=== PATIENT | female | born 1980 | race Caucasian/White ===

== ENCOUNTER 2016-10-20 12:59 | Emergency (ER) | payer SELFPAY ==
[~2016-10-20] VITALS: Ht 165.1 cm; Wt 99.8 kg
== END 2016-10-20 13:13 | disposition home or self-care (01) ==
LOC: ED 12:59
DX: Z00.8 Encounter for other general examination (principal)

== ENCOUNTER 2016-11-05 22:18 | Emergency (ER) | payer OTHER ==
[~2016-11-05] VITALS: Ht 167.6 cm; Wt 99.8 kg
== END 2016-11-05 22:48 | disposition home or self-care (01) ==
LOC: ED 22:18
DX: J01.90 Acute sinusitis, unspecified (principal); J45.901 Unspecified asthma with (acute) exacerbation; Z98.51 Tubal ligation status; Z98.890 Other specified postprocedural states; Z88.0 Allergy status to penicillin
CPT/HCPCS: 99282

== ENCOUNTER 2017-04-20 19:28 | Emergency (ER) | payer OTHER ==
[~2017-04-20] VITALS: Ht 167.6 cm; Wt 114.8 kg
[2017-04-20] MEDS ORDERED: LATUDA120 MG PO (20:15)
[2017-04-20] MEDS ORDERED: SERTRALINE HCL100 MG PO (20:15)
[2017-04-20] MEDS ORDERED: SUCRALFATE1 GM PO (20:15)
[2017-04-20] MEDS ORDERED: OMEPRAZOLE20 MG PO (20:15)
[2017-04-20] MEDS ORDERED: SERTRALINE HCL50 MG PO (20:15)
[2017-04-20] MEDS ORDERED: BUPROPION XL150 MG PO (20:16)
[2017-06-25] MEDS ORDERED: ABILIFY2 MG PO (08:05)
== END 2017-04-21 00:05 | disposition home or self-care (01) ==
LOC: ED 19:28
DX: K62.5 Hemorrhage of anus and rectum (principal); E66.9 Obesity, unspecified; J45.909 Unspecified asthma, uncomplicated; F41.9 Anxiety disorder, unspecified; F32.9 Major depressive disorder, single episode, unspecified; F17.200 Nicotine dependence, unspecified, uncomplicated; Z88.0 Allergy status to penicillin; Z79.899 Other long term (current) drug therapy
CPT/HCPCS: 80053; 81001; 83690; 85025; 99284

== ENCOUNTER 2019-02-22 12:32 | Emergency (ER) | payer OTHER ==
[~2019-02-22] VITALS: Ht 172.7 cm; Wt 129.3 kg
[~2019-02-22 12:32] MED LIST: ABILIFY2 MG PO; BUPROPION XL150 MG PO; LATUDA120 MG PO; OMEPRAZOLE20 MG PO; SERTRALINE HCL100 MG PO; SERTRALINE HCL50 MG PO; SUCRALFATE1 GM PO
[2019-02-22] MEDS ORDERED: VITAMIN D21250 MCG PO (13:08)
[2019-02-22] MEDS ORDERED: CLONIDINE HCL0.1 MG PO (13:08)
[2019-02-22] MEDS ORDERED: METFORMIN HCL1000 MG PO (13:08)
[2019-02-22] MEDS ORDERED: PROPRANOLOL HCL10 MG PO (13:09)
[2019-02-22] MEDS ORDERED: NORCO 5-325 TA1 EACH PO (17:02)
[2019-02-22] MEDS ORDERED: ONDANSETRON ODT8 MG PO (17:02)
== END 2019-02-22 17:17 | disposition home or self-care (01) ==
LOC: ED 12:32
DX: N13.2 Hydronephrosis with renal and ureteral calculous obstruction (principal); J45.909 Unspecified asthma, uncomplicated; F32.9 Major depressive disorder, single episode, unspecified; F41.9 Anxiety disorder, unspecified; F17.200 Nicotine dependence, unspecified, uncomplicated; Z88.0 Allergy status to penicillin; Z79.899 Other long term (current) drug therapy; Z79.84 Long term (current) use of oral hypoglycemic drugs
CPT/HCPCS: 74176; 80053; 81001; 83690; 83735; 85025; 96361; 96374; 96375; 99284-25; A9270; J1885; J2405; J7030

== ENCOUNTER 2019-10-04 18:59 | Emergency (ER) | payer OTHER ==
[~2019-10-04] VITALS: Ht 172.7 cm; Wt 129.3 kg
[~2019-10-04 18:59] MED LIST changes: +CLONIDINE HCL0.1 MG PO; +METFORMIN HCL1000 MG PO; +NORCO 5-325 TA1 EACH PO; +ONDANSETRON ODT8 MG PO; +PROPRANOLOL HCL10 MG PO; +VITAMIN D21250 MCG PO
--- OUTSIDE RECORDS SUMMARY | 2019-10-04 19:02 | XMS ---
PreManage Notification: SOTERO LADD Security Vegetable Worker Events No recent Security Events currently on file CRITERIA MET - [facility] - Has Care Guidelines CARE PROVIDERS There are no care providers on record at this time. Guidelines Source: [employer] [place] Guidelines Date: 02/23/2019 Care Coordination: Mental health services provided by [employer].\T\nbsp; Please contact [employer] with mental health concerns.\T\nbsp; [facility]: [phone]\T\ nbsp; [place]: [phone]. E.D. VISIT COUNT (12 MO.) 2 [facility]. TOTAL 2 NOTE: Visits indicate total known visits. ED/UCC VISIT TRACKING (12 MO.) 10/04/2019 19:00 [facility] [place] TYPE: Emergency COMPLAINT: - FLANK PAIN 02/22/2019 12:32 [facility] [place] TYPE: Emergency COMPLAINT: - ABD PAIN, VOMITING, DIAGNOSES: - Allergy status to penicillin - Anxiety disorder, unspecified - extermination supervisor (current) use of oral hypoglycemic drugs - Major depressive disorder, single episode, unspecified - Unspecified asthma, uncomplicated - Left lower quadrant pain - Other extermination supervisor (current) drug therapy - Nicotine dependence, unspecified, uncomplicated - Nausea with vomiting, unspecified - Hydronephrosis with renal and ureteral calculous obstruction INPATIENT VISIT TRACKING (12 MO.) No inpatient visits to display in this time frame [email or web address]
[2019-10-04] MEDS ORDERED: CYCLOBENZAPRINE10 MG PO (20:53)
== END 2019-10-04 21:09 | disposition home or self-care (01) ==
LOC: ED 18:59
DX: R10.9 Unspecified abdominal pain (principal); J45.909 Unspecified asthma, uncomplicated; F41.9 Anxiety disorder, unspecified; F17.200 Nicotine dependence, unspecified, uncomplicated; Z88.0 Allergy status to penicillin
CPT/HCPCS: 74176; 80053; 81001; 83690; 84703; 85025; 96374; 99284-25; J1885

== ENCOUNTER 2020-03-12 01:03 | Emergency (ER) | payer OTHER ==
[~2020-03-12] VITALS: Ht 167.6 cm; Wt 117.5 kg
[~2020-03-12 01:03] MED LIST changes: +CYCLOBENZAPRINE10 MG PO
--- OUTSIDE RECORDS SUMMARY | 2020-03-12 01:06 | XMS ---
PreManage Notification: SOTERO LADD Security Sccm Administrator Events No recent Security Events currently on file CRITERIA MET - [facility] - Has Care Guidelines - [facility] - 2 Visits in 30 Days CARE PROVIDERS Name Unknown Clinic/Center: Primary Care 10/05/2019-Current PHONE: [phone] Guidelines Source: [employer] [facility] Guidelines Date: 02/23/2019 Care Coordination: Mental health services provided by [employer].\T\nbsp; Please contact [employer] with mental health concerns.\T\nbsp; Reji/Panfilo [place]: [phone]\T\ nbsp; [place]: [phone]. E.D. VISIT COUNT ([address] [facility] T[facility] 3 NOTE: Visits indicate total known visits. ED/UCC VISIT TRACKING (12 MO.) 03/12/2020 01:04 [facility] [place] TYPE: Emergency COMPLAINT: - LT EAR PROBLEM 03/06/2020 18:12 [facility] [place] TYPE: Emergency DIAGNOSES: - Right lower quadrant pain - Tubulo-interstitial nephritis, not specified as acute or chronic - NAUSEA, BLOOD IN STOOL 10/04/2019 19:00 [facility] [place] TYPE: Emergency COMPLAINT: - FLANK PAIN DIAGNOSES: - Nicotine dependence, unspecified, uncomplicated - Allergy status to penicillin - Anxiety disorder, unspecified - Unspecified abdominal pain - Unspecified asthma, uncomplicated INPATIENT VISIT TRACKING (12 MO.) No inpatient visits to display in this time frame [id number]
[2020-03-12] MEDS ORDERED: CEPHALEXIN500 MG PO (01:22)
[2020-03-12] MEDS ORDERED: HYDROCODON-ACE1 EA10 PO (02:18)
== END 2020-03-12 02:34 | disposition home or self-care (01) ==
LOC: ED 01:03
DX: T16.2XXA Foreign body in left ear, initial encounter (principal); F17.200 Nicotine dependence, unspecified, uncomplicated; Z88.0 Allergy status to penicillin
CPT/HCPCS: 99282

== ENCOUNTER 2020-06-09 04:53 | Emergency (ER) | payer OTHER ==
[~2020-06-09] VITALS: Ht 167.6 cm; Wt 106.2 kg
[~2020-06-09 04:53] MED LIST changes: +CEPHALEXIN500 MG PO; +HYDROCODON-ACE1 EA10 PO
--- OUTSIDE RECORDS SUMMARY | 2020-06-09 04:56 | XMS ---
PreManage Notification: SOTERO LADD Security Apprentice/Lineman Events No recent Security Events currently on file CRITERIA MET - [facility] CARE PROVIDERS LILLY RAHMAN Physician Income Auditor 03/14/2020-Current PHONE: [phone] REJI PRIMARY Clinic/Center: Primary Care 10/05/2019-[facility] PHONE: [phone] Guidelines [facility] Guidelines Date: 02/23/2019 Care Coordination: Mental health services provided by [employer].\T\nbsp; Please contact [employer] with mental health concerns.\T\nbsp; Reji/Panfilo [place]: [phone]\T\ nbsp; [place]: [phone]. E.D. VISIT COUNT ([address] MO[address] [facility] [address] TOTAL 4 NOTE: Visits indicate total known visits. ED/UCC VISIT TRACKING (12 MO.) 06/09/2020 04:54 [facility] [place] TYPE: Emergency COMPLAINT: - FEVER 03/12/2020 01:04 [facility] [place] TYPE: Emergency COMPLAINT: - LT EAR PROBLEM DIAGNOSES: - Nicotine dependence, unspecified, uncomplicated - Foreign body in left ear, initial encounter - Allergy status to penicillin 03/06/2020 18:12 [facility] [place] TYPE: Emergency DIAGNOSES: - Right lower [...] visits to display in this time frame [email or web address]
== END 2020-06-09 05:56 | disposition home or self-care (01) ==
LOC: ED 04:53
DX: J20.9 Acute bronchitis, unspecified (principal); J45.909 Unspecified asthma, uncomplicated; F17.200 Nicotine dependence, unspecified, uncomplicated; Z88.0 Allergy status to penicillin
CPT/HCPCS: 99283

== ENCOUNTER 2020-10-29 13:37 | Emergency (ER) | payer OTHER ==
[~2020-10-29] VITALS: Ht 167.6 cm; Wt 106.1 kg
[2020-10-29] MEDS ORDERED: TRAZODONE HCL100 MG PO (15:07)
[2020-10-29] MEDS ORDERED: BUPROPION XL150 MG PO (15:07)
[2020-10-29] MEDS ORDERED: PROCTOCREAM-HC30 GM TOP (15:20)
== END 2020-10-29 15:37 | disposition home or self-care (01) ==
LOC: ED 13:37
DX: K64.9 Unspecified hemorrhoids (principal); J45.909 Unspecified asthma, uncomplicated; F17.200 Nicotine dependence, unspecified, uncomplicated; Z88.0 Allergy status to penicillin; Z79.899 Other long term (current) drug therapy
CPT/HCPCS: 99283

== ENCOUNTER 2020-12-24 10:50 | Emergency (ER) | payer OTHER ==
[~2020-12-24] VITALS: Ht 170.2 cm; Wt 106.1 kg
[~2020-12-24 10:50] MED LIST changes: +PROCTOCREAM-HC30 GM TOP; +TRAZODONE HCL100 MG PO
[2020-12-24] MEDS ORDERED: TESSALON PERLE100 MG PO (12:16)
[2020-12-24] MEDS ORDERED: PREDNISONE20 MG PO (12:16)
== END 2020-12-24 12:44 | disposition home or self-care (01) ==
LOC: ED 10:50
DX: U07.1 COVID-19 (principal); J45.909 Unspecified asthma, uncomplicated; F17.200 Nicotine dependence, unspecified, uncomplicated; Z88.0 Allergy status to penicillin; Z79.899 Other long term (current) drug therapy
CPT/HCPCS: 71045; 94640; 94664; 99284-25; J1100

== ENCOUNTER 2021-03-02 17:10 | Emergency (ER) | payer OTHER ==
[~2021-03-02] VITALS: Ht 170.2 cm; Wt 97.1 kg
[~2021-03-02 17:10] MED LIST changes: +PREDNISONE20 MG PO; +TESSALON PERLE100 MG PO
[2021-03-02] MEDS ORDERED: VENTOLIN HFA18 GM INH (18:14)
[2021-03-02] MEDS ORDERED: MONTELUKAST SOD10 MG PO (18:14)
[2021-03-02] MEDS ORDERED: PRAZOSIN HCL1 MG PO (18:15)
[2021-03-02] MEDS ORDERED: ANUSOL-HC25 MG PR (19:14)
== END 2021-03-02 19:15 | disposition home or self-care (01) ==
LOC: ED 17:10
DX: K64.4 Residual hemorrhoidal skin tags (principal); J45.909 Unspecified asthma, uncomplicated; F17.200 Nicotine dependence, unspecified, uncomplicated; Z79.51 Long term (current) use of inhaled steroids; Z79.899 Other long term (current) drug therapy; Z88.0 Allergy status to penicillin
CPT/HCPCS: 99283

== ENCOUNTER 2021-03-29 20:11 | Observation (INO) | payer OTHER ==
[~2021-03-29] VITALS: Ht 170.2 cm; Wt 90.4 kg
[~2021-03-29 20:11] MED LIST changes: +ANUSOL-HC25 MG PR; +MONTELUKAST SOD10 MG PO; +PRAZOSIN HCL1 MG PO; +VENTOLIN HFA18 GM INH
--- OUTSIDE RECORDS SUMMARY | 2021-03-29 20:20 | XMS ---
PreManage Notification: SOTERO LADD Security Sweet Dough Mixer Events No recent Security Events currently on file CRITERIA MET - [facility] [place] [facility] - 2 Visits in 30 Days CARE PROVIDERS LILLY RAHMAN Physician Appliance Painter And Refinisher 03/14/2020-Current PHONE: [phone] ERIKA PRIMARY Clinic/Center: Primary Care 10/05/2019-[facility] PHONE: [phone] Care Guidelines exist for the following facilities: [facility] ( 02/23/2019 ) [facility] VISIT COUNT (12 MO.) 5 [facility] TOTAL 5 NOTE: Visits indicate total known visits. ED/UCC VISIT TRACKING (12 MO.) 03/29/2021 20:12 [facility] [place] TYPE: Emergency COMPLAINT: - LEFT SIDE ABD PAIN, VOMITING 03/02/2021 17:11 [facility] [place] TYPE: Emergency COMPLAINT: - RECTAL BLEEDING DIAGNOSES: - Other intermediate accountant (current) drug therapy - Unspecified asthma, uncomplicated - Hemorrhage of anus and rectum - Nicotine dependence, unspecified, uncomplicated - half-way (current) use of inhaled steroids - Residual hemorrhoidal skin tags - Allergy status to penicillin 12/24/2020 10:51 [facility] [place] TYPE: Emergency COMPLAINT: - c+ SHORTNESS OF BREATH DIAGNOSES: - Shortness of breath - Other chcf (current) drug therapy - Allergy status to penicillin - Nicotine dependence, unspecified, uncomplicated - COVID-19 - Unspecified asthma, uncomplicated 10/29/2020 13:38 [facility] [place] TYPE: Emergency COMPLAINT: - HEMORRHOID PROBLEM DIAGNOSES: - Nicotine dependence, unspecified, uncomplicated - Unspecified hemorrhoids - Allergy status to penicillin - Other intermediate accountant (current) drug therapy - Other specified diseases of anus and rectum - Unspecified asthma, uncomplicated 06/09/2020 04:54 [facility] [place] TYPE: Emergency COMPLAINT: - FEVER DIAGNOSES: - Allergy status to penicillin - Fever, unspecified - Acute bronchitis, unspecified - Nicotine dependence, unspecified, uncomplicated - Unspecified asthma, uncomplicated INPATIENT VISIT TRACKING (12 MO.) No inpatient visits to display in this time frame [id number]
[2021-03-29] MEDS ORDERED: IBUPROFEN800 MG PO (22:13)
[2021-03-29] MEDS ORDERED: HYDROCORTISONE25 MG PR (22:13)
[2021-03-30] MEDS ORDERED: HYDROCORTISONE25 MG PR (07:56)
--- NOTE | 2021-03-30 18:52 | EKG ---
[facility] [address] [facility] [place] [address] Signed Sinus bradycardia with premature atrial complexes Otherwise normal ECG No previous ECGs available Confirmed by MIROSLAVA GASCA MD ([id number]) on 03/30/2021 6:52:24 PM Electronically Signed By: MIROSLAVA GASCA MD 03/30/211851 PATIENT NAME: SOTERO LADD Electrocardiogram DATE OF : 80 PHYSICIAN: MIROSLAVA GASCA MD REPORT #: [id number] REPORT IS CONFIDENTIAL AND NOT TO BE RELEASED WITHOUT AUTHORIZATION
--- NOTE | 2021-03-30 18:52 | EKG ---
[facility] [address] [place] [address] Signed Marked sinus bradycardia Abnormal ECG When compared with ECG of 29-MAR-2021 23:53, (Unconfirmed) premature atrial complexes are no longer present Confirmed by MIROSLAVA GASCA MD ([id number]) on 03/30/2021 6:52:30 PM Electronically Signed By: MIROSLAVA GASCA MD 03/30/211851 PATIENT NAME: SOTERO LADD Electrocardiogram DATE OF : [birth year] PHYSICIAN: MIROSLAVA GASCA MD REPORT #: [id number] REPORT IS CONFIDENTIAL AND NOT TO BE RELEASED WITHOUT AUTHORIZATION
[2021-03-31] MEDS ORDERED: PERCOCET 5-3251 EACH PO (09:32)
--- NOTE | 2021-03-31 15:35 | PATH ---
[facility] [address] [place], [place] [address] Signed SPECIMEN(S): A GALLBLADDER AND STONE SPECIMEN SOURCE: A. GALLBLADDER AND STONE CLINICAL HISTORY: Acute cholecystitis. FINAL PATHOLOGIC DIAGNOSIS: Gallbladder, cholecystectomy: - Chronic cholecystitis with cholesterolosis. - Cholelithiasis. NAL:cml:C2NR MICROSCOPIC EXAMINATION: Histologic sections of all submitted blocks are examined by light microscopy. These findings, together with the gross examination, support the pathologic diagnosis. GROSS DESCRIPTION: The specimen, labeled "MC, A," and designated on the requisition "gallbladder and stone," is received in formalin and consists of Specimen: Previously opened gallbladder. Dimensions: 10.3 x 4.4 x 3.0 cm. Serosa: Red-pink, smooth. Cystic Duct: Unobstructed, margin inked black and shaved. Calculi: One green, roughened calculus (1.7 x 1.6 x 1.5 cm). Mucosa: Red-brown and velvety. Wall thickness: Up to 2.3 cm thick, edematous gallbladder wall. Lymph node: No pericystic lymph nodes are grossly identified. Additional: None. Inspector Line sections are submitted in cassette (A1). AC (under the direct supervision of a pathologist) The Gross Description was prepared using a voice recognition system. The report was reviewed for accuracy; however, sound-alike word errors, addition and/or deletions may occur. If there is any question about this report, please contact Client Services. PERFORMING LABORATORY: The technical component was performed by [employer], [address] [place] [address] (Teacher Industrial Arts: Xochilt Taylor MD; CLIA# [id number]). PATIENT NAME: SOTERO LADD PATHOLOGY DATE OF : [birth year] REPORT #: [id number] PHYSICIAN: CHAITANYA SANTOS PCP: TERE ELLINGTON PA-C REPORT IS CONFIDENTIAL AND NOT TO BE RELEASED WITHOUT AUTHORIZATION [facility] [address] [place], [place] [address] Signed Professional interpretation was [facility] [address] [address] (CLIA# [id number]). Diagnostician: Shelli Hernandez MD Pathologist Electronically Signed 03/31/2021 Copies: ~ PATIENT NAME: SOTERO LADD PATHOLOGY DATE OF : [birth year] REPORT #: [id number] PHYSICIAN: CHAITANYA SANTOS PCP: TERE ELLINGTON PA-C REPORT IS CONFIDENTIAL AND NOT TO BE RELEASED WITHOUT AUTHORIZATION
== END 2021-03-31 11:12 | disposition home or self-care (01) ==
LOC: ED 20:11 → MS 20:13
PROVIDERS: ADMIT Surgery; ATTEND Surgery
PROC: 0FT44ZZ Resection of Gallbladder, Percutaneous Endoscopic Approach (ICD-10-PCS; principal; 2021-03-30 08:33)
DX: K80.12 Calculus of gallbladder with acute and chronic cholecystitis without obstruction (principal); U07.1 COVID-19; J45.909 Unspecified asthma, uncomplicated; E11.9 Type 2 diabetes mellitus without complications; F17.200 Nicotine dependence, unspecified, uncomplicated; Z88.0 Allergy status to penicillin
CPT/HCPCS: 36415; 74177; 80048; 80053; 81001; 83690; 85025; 93005; 93010; C9803; J1100; J1170; J1885; J1956; J2001; J2270; J2405; J2704; J3010; J7030; J7121; Q9967; U0003

== ENCOUNTER 2021-07-14 08:31 | Emergency (ER) | payer OTHER ==
[~2021-07-14] VITALS: Ht 170.2 cm; Wt 94.5 kg
[~2021-07-14 08:31] MED LIST changes: +HYDROCORTISONE25 MG PR; +IBUPROFEN800 MG PO; +PERCOCET 5-3251 EACH PO
--- OUTSIDE RECORDS SUMMARY | 2021-07-14 08:34 | XMS ---
PreManage Notification: SOTERO LADD Security Childbirth And Infant Care Teacher Events No recent Security Events currently on file CRITERIA MET - [facility] CARE PROVIDERS TERE ELLINGTON Physician Riveter 03/30/2021-Current PHONE: [phone] ERIKA PRIMARY Clinic/Center: Primary Care 10/05/2019-[facility] PHONE: [phone] Care Guidelines exist for the following facilities: [facility] VISIT COUNT (12 MO.) 5 [facility] TOTAL 5 NOTE: Visits indicate total known visits. ED/UCC VISIT TRACKING (12 MO.) 07/14/2021 08:[address] [facility] [place] TYPE: Emergency COMPLAINT: - R ARM/SIDE NUMBNESS, DIARRHEA 03/29/2021 20:12 [facility] [place] TYPE: Emergency COMPLAINT: - LEFT SIDE ABD PAIN, VOMITING 03/02/2021 17:11 [facility] [place] TYPE: Emergency COMPLAINT: - RECTAL BLEEDING DIAGNOSES: - Other prison (current) drug therapy - Unspecified asthma, uncomplicated - Hemorrhage of anus and rectum - Nicotine dependence, unspecified, uncomplicated - superintendent marine oil terminal (current) use of inhaled steroids - Residual hemorrhoidal skin tags - Allergy status to penicillin 12/24/2020 10:51 [facility] [place] TYPE: Emergency COMPLAINT: - c+ SHORTNESS OF BREATH DIAGNOSES: - Shortness of breath - Other exterminator termite (current) drug therapy - Allergy status to penicillin - Nicotine dependence, unspecified, uncomplicated - COVID-19 - Unspecified asthma, uncomplicated 10/29/2020 13:38 [facility] [place] TYPE: Emergency COMPLAINT: - HEMORRHOID PROBLEM DIAGNOSES: - Nicotine dependence, unspecified, uncomplicated - Unspecified hemorrhoids - Allergy status to penicillin - Other prison (current) drug therapy - Other specified diseases of anus and rectum - Unspecified asthma, uncomplicated INPATIENT VISIT TRACKING (12 MO.) 03/29/2021 20:[address] [facility] [place] TYPE: Observation COMPLAINT: - CHOLECYSTITIS DIAGNOSES: - COVID-19 - Allergy status to penicillin - Type 2 diabetes mellitus without complications - Calculus of gallbladder with acute and chronic cholecystitis without obstruction - Acute cholecystitis - Unspecified asthma, uncomplicated - Nicotine dependence, unspecified, uncomplicated [email or web address]
[2021-07-14] MEDS ORDERED: BUPROPION XL300 MG PO (09:36)
[2021-07-14] MEDS ORDERED: NICOTINE PATCH1 EACH TD (09:36)
== END 2021-07-14 14:25 | disposition home or self-care (01) ==
LOC: ED 08:31
DX: R20.2 Paresthesia of skin (principal); G37.8 Other specified demyelinating diseases of central nervous system; J45.909 Unspecified asthma, uncomplicated; R73.03 Prediabetes; F17.200 Nicotine dependence, unspecified, uncomplicated; Z88.0 Allergy status to penicillin; Z79.899 Other long term (current) drug therapy
CPT/HCPCS: 36415; 70450; 70551; 70552; 70553; 80053; 85025; 99284-25; A9577

== ENCOUNTER 2021-11-04 01:55 | Emergency (ER) | payer OTHER ==
[~2021-11-04] VITALS: Ht 167.6 cm; Wt 98.6 kg
[~2021-11-04 01:55] MED LIST changes: +BUPROPION XL300 MG PO; +NICOTINE PATCH1 EACH TD
--- OUTSIDE RECORDS SUMMARY | 2021-11-04 01:59 | XMS ---
PreManage Notification: SOTERO LADD Security Electronic Induction Hardener Events No recent Security Events currently on file CRITERIA MET - [facility] CARE PROVIDERS TERE ELLINGTON Physician Ad Trafficker 03/30/2021-Current PHONE: Unknown ERIKA PRIMARY Clinic/Center: Primary Care 10/05/2019-[facility] PHONE: [phone] Care Guidelines exist for the following facilities: [facility] VISIT COUNT (12 MO.) [address] [facility] TOTAL 5 NOTE: Visits indicate total known visits. 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 - Allergy status to penicillin - Paresthesia of skin - Prediabetes - Unspecified asthma, uncomplicated 03/29/2021 20:12 [facility] [place] TYPE: Emergency COMPLAINT: - LEFT SIDE ABD PAIN, VOMITING 03/02/2021 17:11 [facility] [place] TYPE: Emergency COMPLAINT: - RECTAL BLEEDING DIAGNOSES: - Hemorrhage of anus and rectum - Other care home (current) drug therapy - Residual hemorrhoidal skin tags - Nicotine dependence, unspecified, uncomplicated - Unspecified asthma, uncomplicated - Allergy status to penicillin - [facility] (current) use of inhaled steroids 12/24/2020 10:51 [facility] [place] TYPE: Emergency COMPLAINT: - c+ SHORTNESS OF BREATH DIAGNOSES: - Allergy status to penicillin - Shortness of breath - Unspecified asthma, uncomplicated - Nicotine dependence, unspecified, uncomplicated - Other care home (current) drug therapy - COVID-19 INPATIENT VISIT TRACKING (12 MO.) 03/29/2021 20:13 [facility] [place] TYPE: Observation COMPLAINT: - CHOLECYSTITIS DIAGNOSES: - Type 2 diabetes mellitus without complications - COVID-19 - Unspecified asthma, uncomplicated - Calculus of gallbladder with acute and chronic cholecystitis without obstruction - Allergy status to penicillin - Nicotine dependence, unspecified, uncomplicated - Acute cholecystitis [email or web address]
[2021-11-04] MEDS ORDERED: ONDANSETRON ODT8 MG PO (02:12)
[2021-11-04] MEDS ORDERED: PRAZOSIN HCL1 MG PO (02:12)
[2021-11-04] MEDS ORDERED: OLANZAPINE5 MG PO (02:13)
[2021-11-04] MEDS ORDERED: PROPRANOLOL HCL20 MG PO (02:13)
[2021-11-04] MEDS ORDERED: SUMATRIPTAN SU100 MG PO (02:14)
--- NOTE | 2021-11-04 15:56 | EKG ---
[facility] [address] [facility] [place], [place] [address] Signed Sinus bradycardia Otherwise normal ECG When compared with ECG of 30-MAR-2021 06:20, No significant change was found Confirmed by PERRI PERKINS MD ([id number]) on 11/04/2021 3:55:54 PM Electronically Signed By: PERRI PERKINS MD 11/04/21 1556 PATIENT NAME: SOTERO LADD Electrocardiogram DATE OF : 80 PHYSICIAN: PERRI PERKINS MD REPORT #: [id number] REPORT IS CONFIDENTIAL AND NOT TO BE RELEASED WITHOUT AUTHORIZATION
== END 2021-11-04 02:52 | disposition home or self-care (01) ==
LOC: ED 01:55
DX: J44.1 Chronic obstructive pulmonary disease with (acute) exacerbation (principal); Z20.822 Contact with and (suspected) exposure to COVID-19; J45.909 Unspecified asthma, uncomplicated; F17.200 Nicotine dependence, unspecified, uncomplicated; Z88.0 Allergy status to penicillin; Z79.899 Other long term (current) drug therapy
CPT/HCPCS: 71046; 87502; 93005; 93010; 94640; 99285-25; C9803; U0003

== ENCOUNTER 2022-01-13 18:09 | Emergency (ER) | payer OTHER ==
[~2022-01-13] VITALS: Ht 167.6 cm; Wt 98.6 kg
[~2022-01-13 18:09] MED LIST changes: +OLANZAPINE5 MG PO; +PROPRANOLOL HCL20 MG PO; +SUMATRIPTAN SU100 MG PO
--- OUTSIDE RECORDS SUMMARY | 2022-01-13 18:12 | XMS ---
PreManage Notification: SOTERO LADD Security Puppet Maker Events No recent Security Events currently on file CRITERIA MET - [facility] CARE PROVIDERS TERE ELLINGTON Physician Heel Sorter 03/30/2021-Current PHONE: [phone] ERIKA PRIMARY Clinic/Center: Primary Care 10/05/2019-[facility] PHONE: [phone] Care Guidelines exist for the following facilities: [facility] VISIT COUNT (12 MO.) [address] [facility] TOTAL 5 NOTE: Visits indicate total known visits. ED/UCC VISIT TRACKING (12 MO.) 01/13/2022 18:11 [facility] [place] TYPE: Emergency COMPLAINT: - CP DUE TO FINDING OUT BAD NEWS 11/04/2021 01:56 [facility] [place] TYPE: Emergency COMPLAINT: - SHORTNESS OF BREATH DIAGNOSES: - Other exterminator termite (current) drug therapy - Chronic obstructive pulmonary disease with (acute) exacerbation - Nicotine dependence, unspecified, uncomplicated - Contact with and (suspected) exposure to COVID-19 - Shortness of breath - Allergy status to penicillin - Unspecified asthma, uncomplicated 07/14/2021 08:32 [facility] [place] TYPE: Emergency COMPLAINT: - R ARM/SIDE NUMBNESS, DIARRHEA DIAGNOSES: - 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 - Allergy status to penicillin - Paresthesia of skin - Prediabetes - Unspecified asthma, uncomplicated - Other exterminator termite (current) drug therapy - Nicotine dependence, unspecified, uncomplicated - Anesthesia of skin 03/29/2021 20:12 [facility] [place] TYPE: Emergency COMPLAINT: - LEFT SIDE ABD PAIN, VOMITING 03/02/2021 17:11 [facility] [place] TYPE: Emergency COMPLAINT: - RECTAL BLEEDING DIAGNOSES: - Residual hemorrhoidal skin tags - Nicotine dependence, unspecified, uncomplicated - Unspecified asthma, uncomplicated - Allergy status to penicillin - long-term (current) use of inhaled steroids - Hemorrhage of anus and rectum - Other exterminator termite (current) drug therapy INPATIENT VISIT TRACKING (12 MO.) 03/29/2021 20:13 [facility] [place] TYPE: Observation COMPLAINT: - CHOLECYSTITIS DIAGNOSES: - Unspecified asthma, uncomplicated - Calculus of gallbladder with acute and chronic cholecystitis without obstruction - Allergy status to penicillin - Nicotine dependence, unspecified, uncomplicated - Acute cholecystitis - Type 2 diabetes mellitus without complications - COVID-19 [email or web address]
--- NOTE | 2022-01-16 20:29 | EKG ---
[facility] [address] [facility] [place] [address] Signed Normal sinus rhythm Incomplete right bundle branch block Borderline ECG When compared with ECG of 04-NOV-2021 02:00, No significant change was found Confirmed by Jeff Reynolds MD () on 01/16/2022 8:29:15 PM Electronically Signed By: JEFF REYNOLDS MD 01/16/222028 PATIENT NAME: SOTERO LADD Electrocardiogram DATE OF : 80 PHYSICIAN: JEFF REYNOLDS MD REPORT #: [id number] REPORT IS CONFIDENTIAL AND NOT TO BE RELEASED WITHOUT AUTHORIZATION
== END 2022-01-13 22:15 | disposition home or self-care (01) ==
LOC: ED 18:09
DX: R07.89 Other chest pain (principal); J45.909 Unspecified asthma, uncomplicated; F17.200 Nicotine dependence, unspecified, uncomplicated; Z88.0 Allergy status to penicillin; Z79.899 Other long term (current) drug therapy
CPT/HCPCS: 36415; 71045; 80053; 81001; 83690; 83735; 84484; 84703; 85025; 93005; 93010; 99285-25

== ENCOUNTER 2022-10-10 23:56 | Emergency (ER) | payer OTHER ==
[~2022-10-10] VITALS: Ht 167.6 cm; Wt 98.4 kg
--- OUTSIDE RECORDS SUMMARY | ~2022-10-10 | XMS | Continuity of Care Document ---
Demographics + + + | Address | [address] | | | [place] [address] | + + + | Preferred Language | Unknown | + + + | Marital Status | | + + + | Scientology Affiliation | Unknown | + + + | Race | White | + + + | Ethnic Group | Not or | + + + Author + + + | Author | [facility] | + + + | Organization | [facility] | + + + | Address | [address] | | | [place] [address] | + + + | Phone | | + + + Care Team Providers + + + + | Care Savings Counselor Name | Role | Phone | + + + + Unavailable | Unavailable | + + + + Unavailable | Unavailable | + + + + Allergies and Intolerances + + + + + + | date | description | facility | reaction | severity | + + + + + + | (no date) | Penicillin | [facility] | (no reaction) | (no severity) | | | [facility] | | | + + + + + + | (no date) | Penicillin | [facility] | (no reaction) | (no severity) | | | | [facility] | | | + + + + + + | (no date) | Penicillins | [facility] | (no reaction) | (no severity) | + + + + + + | (no date) | Penicillin | [facility] | (no reaction) | (no severity) | | | | [facility] | | | + + + + + + | (no date) | Penicillin | [facility] | (no reaction) | (no severity) | | | | [facility] | | | + + + + + + Encounters No information. Functional Status No information. Immunizations No information. Medications + + + + | date | description | facility | + + + + | 2021-03-31 00:00 | OXYCODONE | [facility] | | | HCL/ACETAMINOPHEN | | + + + + | 2021-11-04 00:00 | LURASIDONE HCL | [facility] | + + + + | 2022-01-13 00:00 | LURASIDONE HCL | [facility] | + + + + | 2022-08-28 00:00 | LURASIDONE HCL | [facility] | + + + + | 2020-10-29 00:00 | HYDROCORTISONE | [facility] | + + + + | 2021-11-04 00:00 | IBUPROFEN | [facility] | + + + + | 2022-01-13 00:00 | IBUPROFEN | [facility] | + + + + | 2022-08-28 00:00 | IBUPROFEN | [facility] | + + + + | 2021-11-04 00:00 | OMEPRAZOLE | [facility] | + + + + | 2022-01-13 00:00 | OMEPRAZOLE | [facility] | + + + + | 2022-08-28 00:00 | OMEPRAZOLE | [facility] | + + + + | 2021-11-04 00:00 | MONTELUKAST SODIUM | [facility] | + + + + | 2022-01-13 00:00 | MONTELUKAST SODIUM | [facility] | + + + + | 2022-08-28 00:00 | MONTELUKAST SODIUM | [facility] | + + + + | 2020-12-24 00:00 | BENZONATATE | [facility] | + + + + | 2021-11-04 00:00 | CEPHALEXIN | [facility] | + + + + | 2022-01-13 00:00 | CEPHALEXIN | [facility] | + + + + | 2022-08-28 00:00 | CEPHALEXIN | [facility] | + + + + | 2021-11-04 00:00 | OLANZAPINE | [facility] | + + + + | 2022-01-13 00:00 | OLANZAPINE | [facility] | + + + + | 2022-08-28 00:00 | OLANZAPINE | [facility] | + + + + | 2021-11-04 00:00 | ONDANSETRON | [facility] | + + + + | 2022-01-13 00:00 | ONDANSETRON | [facility] | + + + + | 2022-08-28 00:00 | ONDANSETRON | [facility] | + + + + | 2021-11-04 00:00 | PRAZOSIN HCL | [facility] | + + + + | 2022-01-13 00:00 | PRAZOSIN HCL | [facility] | + + + + | 2022-08-28 00:00 | PRAZOSIN HCL | [facility] | + + + + | 2020-12-24 00:00 | predniSONE | [facility] | + + + + | 2021-11-04 00:00 | SERTRALINE HCL | [facility] | + + + + | 2022-01-13 00:00 | SERTRALINE HCL | [facility] | + + + + | 2022-08-28 00:00 | SERTRALINE HCL | [facility] | + + + + | 2021-11-04 00:00 | SERTRALINE HCL | [facility] | + + + + | 2022-01-13 00:00 | SERTRALINE HCL | [facility] | + + + + | 2022-08-28 00:00 | SERTRALINE HCL | [facility] | + + + + | 2021-11-04 00:00 | SUMATRIPTAN SUCCINATE | [facility] | + + + + | 2022-01-13 00:00 | SUMATRIPTAN SUCCINATE | [facility] | + + + + | 2022-08-28 00:00 | SUMATRIPTAN SUCCINATE | [facility] | + + + + | 2021-11-04 00:00 | SUCRALFATE | [facility] | + + + + | 2022-01-13 00:00 | SUCRALFATE | [facility] | + + + + | 2022-08-28 00:00 | SUCRALFATE | [facility] | + + + + | 2021-11-04 00:00 | ARIPIPRAZOLE | [facility] | + + + + | 2022-01-13 00:00 | ARIPIPRAZOLE | [facility] | + + + + | 2022-08-28 00:00 | ARIPIPRAZOLE | [facility] | + + + + | 2019-10-04 00:00 | CYCLOBENZAPRINE HCL | [facility] | + + + + | 2021-11-04 00:00 | PROPRANOLOL HCL | [facility] | + + + + | 2022-01-13 00:00 | PROPRANOLOL HCL | [facility] | + + + + | 2022-08-28 00:00 | PROPRANOLOL HCL | [facility] | + + + + | 2020-03-12 00:00 | HYDROCODONE | [facility] | | | BIT/ACETAMINOPHEN | | + + + + | 2021-11-04 00:00 | ALBUTEROL SULFATE | [facility] | + + + + | 2022-01-13 00:00 | ALBUTEROL SULFATE | [facility] | + + + + | 2022-08-28 00:00 | ALBUTEROL SULFATE | [facility] | + + + + | 2021-11-04 00:00 | BUPROPION HCL | [facility] | + + + + | 2022-01-13 00:00 | BUPROPION HCL | [facility] | + + + + | 2022-08-28 00:00 | BUPROPION HCL | [facility] | + + + + | 2021-11-04 00:00 | BUPROPION HCL | [facility] | + + + + | 2022-01-13 00:00 | BUPROPION HCL | [facility] | + + + + | 2022-08-28 00:00 | BUPROPION HCL | [facility] | + + + + Problems + + + + | date | description | facility | + + + + | 2016-10-20 00:00 | Encounter for medical | [facility] | | | screening examination | | + + + + | 2016-11-05 00:00 | Acute sinusitis | [facility] | + + + + | 2016-11-05 00:00 | Exacerbation of asthma | [facility] | + + + + | 2017-04-20 00:00 | Rectal hemorrhage | [facility] | + + + + | 2020-03-12 00:00 | Foreign body of left ear | [facility] | + + + + | 2020-06-09 00:00 | Acute bronchitis | [facility] | + + + + | 2021-03-02 00:00 | Bleeding external | [facility] | | | hemorrhoids | | + + + + | 2021-03-30 00:00 | Cholecystitis | [facility] | + + + + | 2021-07-14 00:00 | Paresthesia of right upper | [facility] | | | extremity | | + + + + | 2021-07-14 08:32 | Nicotine dependence, | [facility] | | | unspecified, uncomplicated [facility] | + + + + | 2021-07-14 08:32 | Other specified | [facility] | | | demyelinating diseases of | [facility] | | | central nervous system | | + + + + | 2021-07-14 08:32 | Unspecified asthma, | [facility] | | | uncomplicated [facility] | + + + + | 2021-07-14 08:32 | Anesthesia of skin | [facility] | | | [facility] | + + + + | 2021-07-14 08:32 | Paresthesia of skin | [facility] | | | [facility] | + + + + | 2021-07-14 08:32 | Prediabetes | [facility] | | | | [facility] | + + + + | 2021-07-14 08:32 | Other joint terminal attack controller (current) | [facility] | | | drug therapy | [facility] | + + + + | 2021-07-14 08:32 | Allergy status to | [facility] | | | penicillin | [facility] | + + + + | 2021-11-04 00:00 | Acute exacerbation of | [facility] | | | chronic obstructive | | | | pulmonary disease | | + + + + | 2022-01-13 00:00 | Non-cardiac chest pain | [facility] | + + + + | 2022-08-28 00:00 | Right foot pain | [facility] | + + + + | 2022-08-28 14:00 | NICOTINE DEPENDENCE, | [facility] | | | UNSPECIFIED, UNCOMPLICATED | | + + + + | 2022-08-28 14:00 | PAIN IN RIGHT FOOT | [facility] | + + + + | 2022-08-28 14:00 | OTHER DETENTION (CURRENT) | [facility] | | | DRUG THERAPY | | + + + + | 2022-08-28 14:00 | ALLERGY STATUS TO | [facility] | | | PENICILLIN | | + + + + Procedures No information. Results/Labs +--------+--------+ +---------+--------+---------+ | test | date | facility | value | unit | notes | +--------+--------+ +---------+--------+---------+ + + | Result panel 1 | + + + + + +--------+ + + | | 2022-01-13 | [facility] | 14.2 | (missing) | (missing) | | (unavailable | 21:19 | [facility] | | | | + + + +--------+ + + + + | Result panel 2 | + + + + + +--------+ + + | | 2022-01-13 | [facility] | 52.7 | (missing) | (missing) | | (unavailable | 21:19 | [facility] | | | | + + + +--------+ + + + + | Result panel 3 | + + + + + +--------+ + + | | 2022-01-13 | [facility] | 39.9 | (missing) | (missing) | | (unavailable | 21:19 | [facility] | | | | + + + +--------+ + + + + | Result panel 4 | + + + + + +-------+ + + | | 2022-01-13 | [facility] | 6.2 | (missing) | (missing) | | (unavailable | 21:19 | [facility] | | | | + + + +-------+ + + + + | Result panel 5 | + + + + + +-------+ + + | | 2022-01-13 | [facility] | 0.6 | (missing) | (missing) | | (unavailable | 21:19 | [facility] | | | | + + + +-------+ + + + + | Result panel 6 | + + + + + +-------+ + + | | 2022-01-13 | [facility] | 0.6 | (missing) | (missing) | | (unavailable | 21:19 | [facility] | | | | + + + +-------+ + + + + | Result panel 7 | + + + + + +--------+ + + | | 2022-01-13 | [facility] | 5.12 | (missing) | (missing) | | (unavailable | 21:19 | [facility] | | | | + + + +--------+ + + + + | Result panel 8 | + + + + + +--------+ + + | | 2022-01-13 | [facility] | 16.0 | (missing) | (missing) | | (unavailable | 21:19 | [facility] | | | | + + + +--------+ + + + + | Result panel 9 | + + + + + +------+---------+ + | | 2022-01-13 | [facility] | 97 | mg/dL | (missing) | | (unavailable | 21:19 | [facility] | | | | + + + +------+---------+ + + + | Result panel 10 | + + + + + +------+---------+ + | | 2022-01-13 | [facility] | 10 | mg/dL | (missing) | | (unavailable | 21:19 | [facility] | | | | + + + +------+---------+ + + + | Result panel 11 | + + + + + +--------+---------+ + | | 2022-01-13 | [facility] | 0.61 | mg/dL | (missing) | | (unavailable | 21:19 | [facility] | | | | + + + +--------+---------+ + + + | Result panel 12 | + + + + + +-------+ + + | | 2022-01-13 | [facility] | 114 | (missing) | (missing) | | (unavailable | 21:19 | [facility] | | | | + + + +-------+ + + + + | Result panel 13 | + + + + + +---------+ + + | | 2022-01-13 | [facility] | 16.39 | (missing) | (missing) | | (unavailable | 21:19 | [facility] | | | | + + + +---------+ + + + + | Result panel 14 | + + + + + +-------+ + + | | 2022-01-13 | [facility] | 139 | (missing) | (missing) | | (unavailable | 21:19 | [facility] | | | | + + + +-------+ + + + + | Result panel 15 | + + + + + +-------+ + + | | 2022-01-13 | [facility] | 3.7 | (missing) | (missing) | | (unavailable | 21:19 | [facility] | | | | + + + +-------+ + + + + | Result panel 16 | + + + + + +-------+ + + | | 2022-01-13 | [facility] | 104 | (missing) | (missing) | | (unavailable | 21:19 | [facility] | | | | + + + +-------+ + + + + | Result panel 17 | + + + + + +------+ + + | | 2022-01-13 | [facility] | 22 | (missing) | (missing) | | (unavailable | 21:19 | [facility] | | | | + + + +------+ + + + + | Result panel 18 | + + + + + +--------+ + + | | 2022-01-13 | [facility] | 47.6 | (missing) | (missing) | | (unavailable | 21:19 | [facility] | | | | + + + +--------+ + + + + | Result panel 19 | + + + + + +--------+ + + | | 2022-01-13 | [facility] | 16.7 | (missing) | (missing) | | (unavailable | 21:19 | [facility] | | | | + + + +--------+ + + + + | Result panel 20 | + + + + + +-------+---------+ + | | 2022-01-13 | [facility] | 8.9 | mg/dL | (missing) | | (unavailable | 21:19 | [facility] | | | | + + + +-------+---------+ + + + | Result panel 21 | + + + + + +-------+---------+ + | | 2022-01-13 | [facility] | 2.0 | mg/dL | (missing) | | (unavailable | 21:19 | [facility] | | | | + + + +-------+---------+ + + + | Result panel 22 | + + + + + +-------+ + + | | 2022-01-13 | [facility] | 7.8 | (missing) | (missing) | | (unavailable | 21:19 | [facility] | | | | + + + +-------+ + + + + | Result panel 23 | + + + + + +-------+ + + | | 2022-01-13 | [facility] | 4.2 | (missing) | (missing) | | (unavailable | 21:19 | [facility] | | | | + + + +-------+ + + + + | Result panel 24 | + + + + + +-------+ + + | | 2022-01-13 | [facility] | 3.6 | (missing) | (missing) | | (unavailable | 21:19 | [facility] | | | | + + + +-------+ + + + + | Result panel 25 | + + + + + +--------+ + + | | 2022-01-13 | [facility] | 1.17 | (missing) | (missing) | | (unavailable | 21:19 | [facility] | | | | + + + +--------+ + + + + | Result panel 26 | + + + + + +-------+ + + | | 2022-01-13 | [facility] | 0.6 | (missing) | (missing) | | (unavailable | 21:19 | [facility] | | | | + + + +-------+ + + + + | Result panel 27 | + + + + + +------+ + + | | 2022-01-13 | [facility] | 20 | (missing) | (missing) | | (unavailable | 21:19 | [facility] | | | | + + + +------+ + + + + | Result panel 28 | + + + + + +------+ + + | | 2022-01-13 | [facility] | 42 | (missing) | (missing) | | (unavailable | 21:19 | [facility] | | | | + + + +------+ + + + + | Result panel 29 | + + + + + +--------+ + + | | 2022-01-13 | [facility] | 92.9 | (missing) | (missing) | | (unavailable | 21:19 | [facility] | | | | + + + +--------+ + + + + | Result panel 30 | + + + + + +------+ + + | | 2022-01-13 | [facility] | 67 | (missing) | (missing) | | (unavailable | 21:19 | [facility] | | | | + + + +------+ + + + + | Result panel 31 | + + + + + +------+ + + | | 2022-01-13 | [facility] | 52 | (missing) | (missing) | | (unavailable | 21:19 | [facility] | | | | + + + +------+ + + + + | Result panel 32 | + + + + + +-------+ + + | | 2022-01-13 | [facility] | 5.4 | (missing) | (missing) | | (unavailable | 21:19 | [facility] | | | | + + + +-------+ + + + + | Result panel 33 | + + + + + +--------+ + + | | 2022-01-13 | [facility] | 31.3 | (missing) | (missing) | | (unavailable | 21:19 | [facility] | | | | + + + +--------+ + + + + | Result panel 34 | + + + + + +--------+ + + | | 2022-01-13 | [facility] | 33.7 | (missing) | (missing) | | (unavailable | 21:19 | [facility] | | | | + + + +--------+ + + + + | Result panel 35 | + + + + + +--------+ + + | | 2022-01-13 | [facility] | 12.4 | (missing) | (missing) | | (unavailable | 21:19 | [facility] | | | | + + + +--------+ + + + + | Result panel 36 | + + + + + +-------+ + + | | 2022-01-13 | [facility] | 266 | (missing) | (missing) | | (unavailable | 21:19 | [facility] | | | | + + + +-------+ + + + + | Result panel 37 | + + + + + + + + + | | 2022-01-13 | [facility] | YELLOW | (missing) | (missing) | | (unavailable | 21:34 | [facility] | | | | + + + + + + + + + | Result panel 38 | + + + + + +---------+ + + | | 2022-01-13 | [facility] | CLEAR | (missing) | (missing) | | (unavailable | 21:34 | [facility] | | | | + + + +---------+ + + + + | Result panel 39 | + + + + + + + + + | | 2022-01-13 | [facility] | NEGATIVE | (missing) | (missing) | | (unavailable | 21:34 | [facility] | | | | + + + + + + + + + | Result panel 40 | + + + + + + + + + | | 2022-01-13 | [facility] | NEGATIVE | (missing) | (missing) | | (unavailable | 21:34 | [facility] | | | | + + + + + + + + + | Result panel 41 | + + + + + + + + + | | 2022-01-13 | [facility] | NEGATIVE | (missing) | (missing) | | (unavailable | 21:34 | [facility] | | | | + + + + + + + + + | Result panel 42 | + + + + + +---------+ + + | | 2022-01-13 | [facility] | 1.025 | (missing) | (missing) | | (unavailable | 21:34 | [facility] | | | | + + + +---------+ + + + + | Result panel 43 | + + + + + +---------+ + + | | 2022-01-13 | [facility] | SMALL | (missing) | (missing) | | (unavailable | 21:34 | [facility] | | | | + + + +---------+ + + + + | Result panel 44 | + + + + + +-------+ + + | | 2022-01-13 | [facility] | 5.5 | (missing) | (missing) | | (unavailable | 21:34 | [facility] | | | | + + + +-------+ + + + + | Result panel 45 | + + + + + + + + + | | 2022-01-13 | [facility] | NEGATIVE | (missing) | (missing) | | (unavailable | 21:34 | [facility] | | | | + + + + + + + + + | Result panel 46 | + + + + + + + + + | | 2022-01-13 | [facility] | NORMAL | (missing) | (missing) | | (unavailable | 21:34 | [facility] | | | | + + + + + + + + + | Result panel 47 | + + + + + + + + + | | 2022-01-13 | [facility] | NEGATIVE | (missing) | (missing) | | (unavailable | 21:34 | [facility] | | | | + + + + + + + + + | Result panel 48 | + + + + + + + + + | | 2022-01-13 | [facility] | NEGATIVE | (missing) | (missing) | | (unavailable | 21:34 | [facility] | | | | + + + + + + + + + | Result panel 49 | + + + + + +-------+ + + | | 2022-01-13 | [facility] | 2-3 | (missing) | (missing) | | (unavailable | 21:34 | [facility] | | | | + + + +-------+ + + + + | Result panel 50 | + + + + + +-------+ + + | | 2022-01-13 | [facility] | 2-3 | (missing) | (missing) | | (unavailable | 21:34 | [facility] | | | | + + + +-------+ + + + + | Result panel 51 | + + + + + + + + + | | 2022-01-13 | [facility] | SQUAMOUS 1+ | (missing) | (missing) | | (unavailable | 21:34 | [facility] | | | | + + + + + + + + + | Result panel 52 | + + + + + + + + + | | 2022-01-13 | [facility] | CLEAN CATCH | (missing) | (missing) | | (unavailable | 21:34 | [facility] | | | | + + + + + + + + + | Result panel 53 | + + + + + + + + + | | 2022-01-13 | [facility] | NEGATIVE | (missing) | (missing) | | (unavailable | 21:34 | [facility] | | | | + + + + + + + + + | Result panel 54 | + + + + + + + + + | | 2022-01-13 | [facility] | POSITIVE | (missing) | (missing) | | (unavailable | 21:34 | [facility] | | | | + + + + + + + + + | Result panel 55 | + + + + + + + + + | | 2022-01-13 | [facility] | NEGATIVE | (missing) | (missing) | | (unavailable | 21:34 | [facility] | | | | + + + + + + + + + | Result panel 56 | + + + + + + + + + | | 2022-01-13 | [facility] | NEGATIVE | (missing) | (missing) | | (unavailable | 21:34 | [facility] | | | | + + + + + + + + + | Result panel 57 | + + + + + + + + + | | 2022-01-13 | [facility] | NEGATIVE | (missing) | (missing) | | (unavailable | 21:34 | [facility] | | | | + + + + + + + + + | Result panel 58 | + + + + + + + + + | | 2022-01-13 | [facility] | NEGATIVE | (missing) | (missing) | | (unavailable | 21:34 | [facility] | | | | + + + + + + + + + | Result panel 59 | + + + + + + + + + | | 2022-01-13 | [facility] | NEGATIVE | (missing) | (missing) | | (unavailable | 21:34 | [facility] | | | | + + + + + + + + + | Result panel 60 | + + + + + + + + + | | 2022-01-13 | [facility] | NEGATIVE | (missing) | (missing) | | (unavailable | 21:34 | [facility] | | | | + + + + + + + + + | Result panel 61 | + + + + + + + + + | | 2022-01-13 | [facility] | NEGATIVE | (missing) | (missing) | | (unavailable | 21:34 | [facility] | | | | + + + + + + + + + | Result panel 62 | + + + + + + + + + | | 2022-01-13 | [facility] | NEGATIVE | (missing) | (missing) | | (unavailable | 21:34 | [facility] | | | | + + + + + + + + + | Result panel 63 | + + + + + + + + + | | 2022-01-13 | [facility] | NEGATIVE | (missing) | (missing) | | (unavailable | 21:34 | [facility] | | | | + + + + + + + + + | Result panel 64 | + + + + + + + + + | | 2022-01-13 | [facility] | NEGATIVE | (missing) | (missing) | | (unavailable | 21:34 [facility] | | | | + + + + + + + + + | Result panel 65 | + + + + + + + + + | | 2022-01-13 | [facility] | NEGATIVE | (missing) | (missing) | | (unavailable | 21:34 [facility] | | | | + + + + + + + + + | Result panel 66 | + + + + + + + + + | | 2022-01-13 | [facility] | NEGATIVE | (missing) | (missing) | | (unavailable | 21:34 | [facility] | | | | + + + + + + + Social History No information. Vital Signs + + + +---------+ | date | measurement | value | units | + + + +---------+ | 2021-11-04 00:00 | BMI | 35.1 | kg/m2 | + + + +---------+ | 2021-11-04 00:00 | BP_diastolic | 74 | mmHg | + + + +---------+ | 2021-11-04 00:00 | BP_systolic | 139 | mmHg | + + + +---------+ | 2021-11-04 00:00 | heart_rate | 74 | /min | + + + +---------+ | 2021-11-04 00:00 | height_metric | 167.64 | cm | + + + +---------+ | 2021-11-04 00:00 | height_standard | 66 | in | + + + +---------+ | 2021-11-04 00:00 | o2_saturation | 97 | % | + + + +---------+ | 2021-11-04 00:00 | respiration_rate | 18 | /min | + + + +---------+ | 2021-11-04 00:00 | temperature_metric | 36.78 | C | | | | | | + + + +---------+ | 2021-11-04 00:00 | | 98.2 | F | | | temperature_standar | | | | | d | | | + + + +---------+ | 2021-11-04 00:00 | weight_metric | 98.6 | kg | + + + +---------+ | 2021-11-04 00:00 | weight_standard | 217.38 | lb | + + + +---------+ | 2022-01-13 00:00 | BMI | 35.1 | kg/m2 | + + + +---------+ | 2022-01-13 00:00 | BP_diastolic | 82 | mmHg | + + + +---------+ | 2022-01-13 00:00 | BP_systolic | 129 | mmHg | + + + +---------+ | 2022-01-13 00:00 | heart_rate | 61 | /min | + + + +---------+ | 2022-01-13 00:00 | height_metric | 167.64 | cm | + + + +---------+ | 2022-01-13 00:00 | height_standard | 66 | in | + + + +---------+ | 2022-01-13 00:00 | o2_saturation | 100 | % | + + + +---------+ | 2022-01-13 00:00 | respiration_rate | 18 | /min | + + + +---------+ | 2022-01-13 00:00 | temperature_metric | 36.22 | C | | | | | | + + + +---------+ | 2022-01-13 00:00 | | 97.2 | F | | | temperature_standar | | | | | d | | | + + + +---------+ | 2022-01-13 00:00 | weight_metric | 98.6 | kg | + + + +---------+ | 2022-01-13 00:00 | weight_standard | 217.38 | lb | + + + +---------+ | 2022-08-28 00:00 | BMI | 35.1 | kg/m2 | + + + +---------+ | 2022-08-28 00:00 | BP_diastolic | 84 | mmHg | + + + +---------+ | 2022-08-28 00:00 | BP_systolic | 105 | mmHg | + + + +---------+ | 2022-08-28 00:00 | heart_rate | 56 | /min | + + + +---------+ | 2022-08-28 00:00 | height_metric | 167.64 | cm | + + + +---------+ | 2022-08-28 00:00 | height_standard | 66 | in | + + + +---------+ | 2022-08-28 00:00 | o2_saturation | 96 | % | + + + +---------+ | 2022-08-28 00:00 | respiration_rate | 16 | /min | + + + +---------+ | 2022-08-28 00:00 | temperature_metric | 36.11 | C | | | | | | + + + +---------+ | 2022-08-28 00:00 | | 97 | F | | | temperature_standar | | | | | d | | | + + + +---------+ | 2022-08-28 00:00 | weight_metric | 98.6 | kg | + + + +---------+ | 2022-08-28 00:00 | weight_standard | 217.38 | lb | + + + +---------+"
--- OUTSIDE RECORDS SUMMARY | ~2022-10-10 | XMS | Continuity of Care Document ---
Demographics + + + | Address | [address] | | | [place] [address] | + + + | Preferred Language | Unknown | + + + | Marital Status | | + + + | Scientology Affiliation | Unknown | + + + | Race | White | + + + | Ethnic Group | Not or | + + + Author + + + | Author | [facility] | + + + | Organization | [facility] | + + + | Address | [address] | | | [place] [address] | + + + | Phone | | + + + Care Team Providers + + + + | Care Flight Attendant Inflight Services Name | Role | Phone | + [...] + | 2021-03-31 00:00 | OXYCODONE | [facility] | | | HCL/ACETAMINOPHEN | | + + + + | 2021-11-04 00:00 | LURASIDONE HCL | [facility] | + + + + | 2022-01-13 00:00 | LURASIDONE HCL | [facility] | + + + + | 2022-08-28 00:00 | LURASIDONE HCL | [facility] | + + + + | 2020-10-29 00:00 | HYDROCORTISONE | [facility] | + + + + | 2021-11-04 00:00 | IBUPROFEN | [facility] | + + + + | 2022-01-13 00:00 | IBUPROFEN | [facility] | + + + + | 2022-08-28 00:00 | IBUPROFEN | [facility] | + + + + | 2021-11-04 00:00 | OMEPRAZOLE | [facility] | + + + + | 2022-01-13 00:00 | OMEPRAZOLE | [facility] | + + + + | 2022-08-28 00:00 | OMEPRAZOLE | [facility] | + + + + | 2021-11-04 00:00 | MONTELUKAST SODIUM | [facility] | + + + + | 2022-01-13 00:00 | MONTELUKAST SODIUM | [facility] | + + + + | 2022-08-28 00:00 | MONTELUKAST SODIUM | [facility] | + + + + | 2020-12-24 00:00 | BENZONATATE | [facility] | + + + + | 2021-11-04 00:00 | CEPHALEXIN | [facility] | + + + + | 2022-01-13 00:00 | CEPHALEXIN | [facility] | + + + + | 2022-08-28 00:00 | CEPHALEXIN | [facility] | + + + + | 2021-11-04 00:00 | OLANZAPINE | [facility] | + + + + | 2022-01-13 00:00 | OLANZAPINE | [facility] | + + + + | 2022-08-28 00:00 | OLANZAPINE | [facility] | + + + + | 2021-11-04 00:00 | ONDANSETRON | [facility] | + + + + | 2022-01-13 00:00 | ONDANSETRON | [facility] | + + + + | 2022-08-28 00:00 | ONDANSETRON | [facility] | + + + + | 2021-11-04 00:00 | PRAZOSIN HCL | [facility] | + + + + | 2022-01-13 00:00 | PRAZOSIN HCL | [facility] | + + + + | 2022-08-28 00:00 | PRAZOSIN HCL | [facility] | + + + + | 2020-12-24 00:00 | predniSONE | [facility] | + + + + | 2021-11-04 00:00 | SERTRALINE HCL | [facility] | + + + + | 2022-01-13 00:00 | SERTRALINE HCL | [facility] | + + + + | 2022-08-28 00:00 | SERTRALINE HCL | [facility] | + + + + | 2021-11-04 00:00 | SERTRALINE HCL | [facility] | + + + + | 2022-01-13 00:00 | SERTRALINE HCL | [facility] | + + + + | 2022-08-28 00:00 | SERTRALINE HCL | [facility] | + + + + | 2021-11-04 00:00 | SUMATRIPTAN SUCCINATE | [facility] | + + + + | 2022-01-13 00:00 | SUMATRIPTAN SUCCINATE | [facility] | + + + + | 2022-08-28 00:00 | SUMATRIPTAN SUCCINATE | [facility] | + + + + | 2021-11-04 00:00 | SUCRALFATE | [facility] | + + + + | 2022-01-13 00:00 | SUCRALFATE | [facility] | + + + + | 2022-08-28 00:00 | SUCRALFATE | [facility] | + + + + | 2021-11-04 00:00 | ARIPIPRAZOLE | [facility] | + + + + | 2022-01-13 00:00 | ARIPIPRAZOLE | [facility] | + + + + | 2022-08-28 00:00 | ARIPIPRAZOLE | [facility] | + + + + | 2019-10-04 00:00 | CYCLOBENZAPRINE HCL | [facility] | + + + + | 2021-11-04 00:00 | PROPRANOLOL HCL | [facility] | + + + + | 2022-01-13 00:00 | PROPRANOLOL HCL | [facility] | + + + + | 2022-08-28 00:00 | PROPRANOLOL HCL | [facility] | + + + + | 2020-03-12 00:00 | HYDROCODONE | [facility] | | | BIT/ACETAMINOPHEN | | + + + + | 2021-11-04 00:00 | ALBUTEROL SULFATE | [facility] | + + + + | 2022-01-13 00:00 | ALBUTEROL SULFATE | [facility] | + + + + | 2022-08-28 00:00 | ALBUTEROL SULFATE | [facility] | + + + + | 2021-11-04 00:00 | BUPROPION HCL | [facility] | + + + + | 2022-01-13 00:00 | BUPROPION HCL | [facility] | + + + + | 2022-08-28 00:00 | BUPROPION HCL | [facility] | + + + + | 2021-11-04 00:00 | BUPROPION HCL | [facility] | + + + + | 2022-01-13 00:00 | BUPROPION HCL | [facility] | + + + + | 2022-08-28 00:00 | BUPROPION HCL | [facility] | + + + + Problems + + + + | date | description | facility | + + + + | 2016-10-20 00:00 | Encounter for medical | [facility] | | | screening examination | | + + + + | 2016-11-05 00:00 | Acute sinusitis | [facility] | + + + + | 2016-11-05 00:00 | Exacerbation of asthma | [facility] | + + + + | 2017-04-20 00:00 | Rectal hemorrhage | [facility] | + + + + | 2020-03-12 00:00 | Foreign body of left ear | [facility] | + + + + | 2020-06-09 00:00 | Acute bronchitis | [facility] | + + + + | 2021-03-02 00:00 | Bleeding external | [facility] | | | hemorrhoids | | + + + + | 2021-03-30 00:00 | Cholecystitis | [facility] | + + + + | 2021-07-14 00:00 | Paresthesia of right upper | [facility] | | | extremity | | + [...] + + | 2021-07-14 08:32 | 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 [facility] | + + + + | 2021-07-14 08:32 | Allergy status to | [facility] | | | penicillin | [facility] | + + + + | 2021-11-04 00:00 | Acute exacerbation of | [facility] | | | chronic obstructive | | | | pulmonary disease | | + + + + | 2022-01-13 00:00 | Non-cardiac chest pain | [facility] | + + + + | 2022-08-28 00:00 | Right foot pain | [facility] | + + + + | 2022-08-28 14:00 | NICOTINE DEPENDENCE, | [facility] | | | UNSPECIFIED, UNCOMPLICATED | | + + + + | 2022-08-28 14:00 | PAIN IN RIGHT FOOT | [facility] | + + + + | 2022-08-28 14:00 | OTHER ASSISTED (CURRENT) | [facility] | | | DRUG [...]
[2022-10-11 01:45] VITALS: BP 125/64
== END 2022-10-11 01:45 | disposition home or self-care (01) ==
LOC: ED 23:56
DX: S01.511A Laceration without foreign body of lip, initial encounter (principal); Y04.0XXA Assault by unarmed brawl or fight, initial encounter; J45.909 Unspecified asthma, uncomplicated; E11.49 Type 2 diabetes mellitus with other diabetic neurological complication; F17.200 Nicotine dependence, unspecified, uncomplicated; Z79.899 Other long term (current) drug therapy; Z79.51 Long term (current) use of inhaled steroids
CPT/HCPCS: 12011; 70450; 70486; 72125; 99284-25